=== PATIENT | male | born 1995 | race African-American/Black ===

== ENCOUNTER 2018-02-05 13:26 | Emergency (ER) | payer OTHER, SELFPAY ==
[2018-02-05 13:36] VITALS: BP 139/83; PULSE 80; RESP 14; TEMP 36.9; O2SAT 99; BMI 26.4
[2018-02-05] MEDS: ONDANSETRON 4 MG ODT PO (13:36)
--- NOTE | 2018-02-05 13:40 | ED.ABDPAIN ---
HPI - Abdominal Pain <EVERARDO Del Angel - Last Filed: 02/05/18 22:24> General Chief Complaint: Abdominal Pain Stated Complaint: VOMITING BLOOD Time Seen by Provider: 02/05/18 13:40 History of Present Illness HPI narrative: Healthy 22-year-old male here for complaint of having vomiting that started earlier this morning. She states that he had a couple episodes of vomiting the any had epigastric pain that started. Shortly after that he had a couple episodes of vomiting that had blood in the. Patient was not able to quantify the amount of blood and although he did say that there was a good amount of blood. He denies any prior episodes of this. He denies any history of having ulcers. No trauma to the abdomen. He denies any fevers or chills. Last bowel movement was day before yesterday was normal. He denies any urinary symptoms. No other concerns or complaints. MD complaint: abdominal pain Related Data Previous Rx's Medication Instructions Recorded esomeprazole magnesium 40 mg PO DAILY #30 cap 02/05/18 ondansetron [Zofran ODT] 4 mg PO Q6H PRN #10 tab 02/05/18 Allergies Allergy/AdvReac Type Severity Reaction Status Date / Time No Known Drug Allergies Allergy Verified 02/05/18 13:38 Review of Systems <EVERARDO Del Angel - Last Filed: 02/05/18 22:24> Constitutional Denies chills, Denies fever(s), Denies lethargy and Denies weakness Eyes Denies change in vision, Denies eye discharge, Denies irritation and Denies loss of vision ENT Ears, Nose, Mouth, and Throat: Denies change in voice, Denies neck pain and Denies sore throat Cardiovascular Denies chest pain, Denies irregular heart rhythm, Denies lightheadedness, Denies palpitations, Denies dyspnea, Denies dyspnea on exertion and Denies orthopnea Respiratory Denies cough, Denies dyspnea, Denies dyspnea on exertion and Denies wheezing Gastrointestinal Gastrointestinal: Reports abdominal pain, Reports nausea and Reports vomiting Genitourinary Denies hematuria, Denies flank pain, Denies urinary incontinence and Denies urinary urgency Musculoskeletal Denies neck pain Integumentary/Breasts Denies pruritus, Denies erythema, Denies rash and Denies wounds Neurologic Denies confusion, Denies loss of vision and Denies weakness Psychiatric Denies anxiety, Denies confusion, Denies depression, Denies homicidal ideation and Denies suicidal ideation Endocrine Denies palpitations Allergic/Immunologic Denies wheezing Exam <EVERARDO Del Angel - Last Filed: 02/05/18 22:24> Initial Vital Signs Initial Vital Signs: Vital Signs Temperature 98.4 F 02/05/18 13:36 Pulse Rate 80 02/05/18 13:36 Respiratory Rate 14 02/05/18 13:36 Blood Pressure 139/83 H 02/05/18 13:36 Pulse Oximetry 99 02/05/18 13:36 Const General: cooperative and well developed Nutritional Appearance: well nourished Orientation: alert, awake, oriented x3 and not confused HENMT Mouth: oral mucosae normal and moist mucous membranes Eyes Conjunctivae: conjunctivae normal Sclera: sclerae normal Pupils: PERRL EOM: EOM intact bilaterally Resp Effort & Inspection: normal respiratory effort, able to speak in complete sentences, no respiratory distress and no use of accessory muscles Auscultation: clear to auscultation bilaterally, no rales, no rhonchi and no wheezes Cardio Rate: regular rate Rhythm: regular rhythm Heart Sounds: no click, no gallops, no murmurs and no rubs Pulses: normal peripheral pulses GI Inspection: non-distended Palpation: soft, no hepatosplenomegaly, No guarding, No pulsatile mass and tender Auscultation: normal bowel sounds General: No CVA tenderness Skin General: no rashes or lesions noted, No jaundice and No petechiae <Hector Spangler DO - Last Filed: 02/08/18 14:01> Initial Vital Signs Initial Vital Signs: Vital Signs Temperature 98.4 F 02/05/18 13:36 Pulse Rate 80 02/05/18 13:36 Respiratory Rate 14 02/05/18 13:36 Blood Pressure 139/83 H 02/05/18 13:36 Pulse Oximetry 99 02/05/18 13:36 Course <EVERARDO Del Angel - Last Filed: 02/05/18 22:24> Orders Ordered: Discontinued Medications Sodium Chloride (Normal Saline 0.9%) 1,000 mls @ 1,000 mls/hr IV BOLUS ONE Stop: 02/05/18 15:16 Last Infusion: 02/05/18 15:36 Dose: 0 mls/hr Admin: 02/05/18 14:23 Dose: 1,000 mls/hr Ondansetron HCl (Zofran Odt) 4 mg PO NOW ONE Stop: 02/05/18 13:36 Last Admin: 02/05/18 13:36 Dose: 4 mg Ondansetron HCl (Zofran) 4 mg IV NOW ONE Stop: 02/05/18 14:18 Last Admin: 02/05/18 14:23 Dose: 4 mg Vital Signs - 8 hr 02/05/18 16:58 Pulse Rate 69 Respiratory Rate 14 Blood Pressure 133/77 H Pulse Oximetry 99 <Hector Spangler DO - Last Filed: 02/08/18 14:01> Orders Ordered: Discontinued Medications Sodium Chloride (Normal Saline 0.9%) 1,000 mls @ 1,000 mls/hr IV BOLUS ONE Stop: 02/05/18 15:16 Last Infusion: 02/05/18 15:36 Dose: 0 mls/hr Admin: 02/05/18 14:23 Dose: 1,000 mls/hr Ondansetron HCl (Zofran Odt) 4 mg PO NOW ONE Stop: 02/05/18 13:36 Last Admin: 02/05/18 13:36 Dose: 4 mg Ondansetron HCl (Zofran) 4 mg IV NOW ONE Stop: 02/05/18 14:18 Last Admin: 02/05/18 14:23 Dose: 4 mg Vital Signs - 8 hr 02/05/18 16:58 Pulse Rate 69 Respiratory Rate 14 Blood Pressure 133/77 H Pulse Oximetry 99 MDM - Abdominal Pain <EVERARDO Del Angel - Last Filed: 02/05/18 22:24> Lab Data Result diagrams: 02/05/18 14:16 02/05/18 14:16 Lab Results 02/05/18 02/05/18 02/05/18 Range/Units 14:16 14:16 14:16 WBC 8.1 (4.5-11.0) X10^3/uL RBC 4.63 (4.5-5.9) X10^6/uL Hgb 15.3 (13.5-17.5) g/dL Hct 44.3 (41-53) % MCV 95.5 (80-100) fL MCH 32.9 (26-34) PG MCHC 34.5 (30-36) % RDW 13.1 (11.6-14.8) % Plt Count 233 (150-400) X10^3/uL Neut % (Auto) 77.8 H (50-75) % Lymph % (Auto) 15.5 L (25-40) % [place] % (Auto) 5.6 (3-14) % Eos % (Auto) 0.5 L (2-4) % Baso % (Auto) 0.6 (0-2) % Neut # (Auto) 6300 H (3743-3194) /uL PT 11.6 (10.1-12.7) SECONDS INR 1.1 (0.9-1.3) Sodium 143 (137-145) mmol/L Potassium 4.0 (3.4-5.1) mmol/L Chloride 99 (98-107) mmol/L Carbon Dioxide 30 (22-32) mmol/L BUN 9 (9-20) mg/dL Creatinine 0.90 (0.66-1.25) mg/dL Estimated GFR > 60.0 (>60) mL/min BUN/Creatinine Ratio 10.0 (6-22) Glucose 93 (70-100) mg/dL Calcium 10.2 (8.4-10.2) mg/dL Total Bilirubin 0.8 (0.2-1.3) mg/dL AST 34 (17-59) IU/L ALT 22 (21-72) IU/L Alkaline Phosphatase 75 (38-126) U/L Total Protein 8.5 H (6.3-8.2) g/dL Albumin 5.0 (3.5-5.0) g/dL Globulin 3.5 (1.7-4.1) g/dL Albumin/Globulin Ratio 1.4 (1.0-2.8) Lipase 18 L (23-300) U/L Urine RBC (0-5/HPF) Urine WBC (0-5/HPF) Ur Squamous Epith Cells Amorphous Sediment Urine Bacteria (None) Urine Mucus (Negative) Ur Culture Indicated? Micro UA Comment 02/05/18 Range/Units Unknown WBC (4.5-11.0) X10^3/uL RBC (4.5-5.9) X10^6/uL Hgb (13.5-17.5) g/dL Hct (41-53) % MCV (80-100) fL MCH (26-34) PG MCHC (30-36) % RDW (11.6-14.8) % Plt Count (150-400) X10^3/uL Neut % (Auto) (50-75) % Lymph % (Auto) (25-40) % [place] % (Auto) (3-14) % Eos % (Auto) (2-4) % Baso % (Auto) (0-2) % Neut # (Auto) (7819-1186) /uL PT (10.1-12.7) SECONDS INR (0.9-1.3) Sodium (137-145) mmol/L Potassium (3.4-5.1) mmol/L Chloride (98-107) mmol/L Carbon Dioxide (22-32) mmol/L BUN (9-20) mg/dL Creatinine (0.66-1.25) mg/dL Estimated GFR (>60) mL/min BUN/Creatinine Ratio (6-22) Glucose (70-100) mg/dL Calcium (8.4-10.2) mg/dL Total Bilirubin (0.2-1.3) mg/dL AST (17-59) IU/L ALT (21-72) IU/L Alkaline Phosphatase (38-126) U/L Total Protein (6.3-8.2) g/dL Albumin (3.5-5.0) g/dL Globulin (1.7-4.1) g/dL Albumin/Globulin Ratio (1.0-2.8) Lipase (23-300) U/L Urine RBC None seen (0-5/HPF) Urine WBC 0-1/hpf (0-5/HPF) Ur Squamous Epith Cells 0-1 /hpf Amorphous Sediment 1+ Urine Bacteria None seen (None) Urine Mucus 2+ H (Negative) Ur Culture Indicated? Cult not indicated Micro UA Comment Not Reportable Imaging Data CT scan - abdomen: Radiologist's impression: XPROCEDURE: CT ABDOMEN PELVIS W CON INDICATIONS: Epigastric pain vomiting blood TECHNIQUE: After the administration of intravenous contrast, 5 mm thick sections acquired from the diaphragm to the symphysis. 5 mm coronal and sagittal reformats were acquired. For radiation dose reduction, the following was used: automated exposure control, adjustment of mA and/or kV according to patient size. COMPARISON: None. FINDINGS: Image quality: Excellent. ABDOMEN: Lung bases: Lung bases are clear. Heart size is normal. Solid organs: Liver is normal in size and enhancement. Gallbladder is clear. Biliary system is non dilated. Pancreas enhances normally. Spleen is normal in size and enhancement. No adrenal nodules. Kidneys demonstrate normal size and enhancement, without hydronephrosis. Peritoneum and bowel: Stomach and duodenum are unremarkable. Small bowel loops demonstrate normal wall thickness and caliber. Normal air-filled appendix. No free fluid or air. Nodes and vessels: No retroperitoneal or mesenteric adenopathy by size criteria. Aorta and inferior vena cava are normal in size. Miscellaneous: No ventral hernias. PELVIS: Genitourinary: Bladder wall thickness is normal. Miscellaneous: No inguinal hernias or adenopathy. Bones: No suspicious bony lesions. No vertebral body compression fractures. IMPRESSION: 1. No evidence of bowel obstruction or pneumoperitoneum. Normal appendix is visualized. 2. Stomach is partially collapsed. No unusual wall thickening or mass seen. Acute gastritis cannot be excluded by this exam. Endoscopy is suggested. Dictated by: Abdias Rhodes M.D. on 02/05/2018 at 14:52 Approved by: Abdias Rhodes M.D. on 02/05/2018 at 14:57 MDM Narrative Medical decision making narrative: CBC and Chem panel were obtained were unremarkable. PT and INR was obtained was also negative. Urinalysis was negative for urinary tract infection. CT of the abdomen was negative for any acute findings. However stomach was found to be partially collapsed and was unable to evaluate for gastritis with Radiology recommended follow up with endoscope. He is prescribed Zofran to help with nausea vomiting. He is also prescribed short course osomeprazole to cover for gastritis and possible ulceration. Follow up with primary care provider the next few days. Return emergency room for any worsening symptoms. <Hector Spangler, DO - Last Filed: 02/08/18 14:01> Lab Data Lab Results 02/05/18 02/05/18 02/05/18 Range/Units 14:16 14:16 14:16 WBC 8.1 (4.5-11.0) X10^3/uL RBC 4.63 (4.5-5.9) X10^6/uL Hgb 15.3 (13.5-17.5) g/dL Hct 44.3 (41-53) % MCV 95.5 (80-100) fL MCH 32.9 (26-34) PG MCHC 34.5 (30-36) % RDW 13.1 (11.6-14.8) % Plt Count 233 (150-400) X10^3/uL Neut % (Auto) 77.8 H (50-75) % Lymph % (Auto) 15.5 L (25-40) % [place] % (Auto) 5.6 (3-14) % Eos % (Auto) 0.5 L (2-4) % Baso % (Auto) 0.6 (0-2) % Neut # (Auto) 6300 H (1063-3019) /uL PT 11.6 (10.1-12.7) SECONDS INR 1.1 (0.9-1.3) Sodium 143 (137-145) mmol/L Potassium 4.0 (3.4-5.1) mmol/L Chloride 99 (98-107) mmol/L Carbon Dioxide 30 (22-32) mmol/L BUN 9 (9-20) mg/dL Creatinine 0.90 (0.66-1.25) mg/dL Estimated GFR > 60.0 (>60) mL/min BUN/Creatinine Ratio 10.0 (6-22) Glucose 93 (70-100) mg/dL Calcium 10.2 (8.4-10.2) mg/dL Total Bilirubin 0.8 (0.2-1.3) mg/dL AST 34 (17-59) IU/L ALT 22 (21-72) IU/L Alkaline Phosphatase 75 (38-126) U/L Total Protein 8.5 H (6.3-8.2) g/dL Albumin 5.0 (3.5-5.0) g/dL Globulin 3.5 (1.7-4.1) g/dL Albumin/Globulin Ratio 1.4 (1.0-2.8) Lipase 18 L (23-300) U/L Urine RBC (0-5/HPF) Urine WBC (0-5/HPF) Ur Squamous Epith Cells Amorphous Sediment Urine Bacteria (None) Urine Mucus (Negative) Ur Culture Indicated? Micro UA Comment 02/05/18 Range/Units Unknown WBC (4.5-11.0) X10^3/uL RBC (4.5-5.9) X10^6/uL Hgb (13.5-17.5) g/dL Hct (41-53) % MCV (80-100) fL MCH (26-34) PG MCHC (30-36) % RDW (11.6-14.8) % Plt Count (150-400) X10^3/uL Neut % (Auto) (50-75) % Lymph % (Auto) (25-40) % [place] % (Auto) (3-14) % Eos % (Auto) (2-4) % Baso % (Auto) (0-2) % Neut # (Auto) (2439-1687) /uL PT (10.1-12.7) SECONDS INR (0.9-1.3) Sodium (137-145) mmol/L Potassium (3.4-5.1) mmol/L Chloride (98-107) mmol/L Carbon Dioxide (22-32) mmol/L BUN (9-20) mg/dL Creatinine (0.66-1.25) mg/dL Estimated GFR (>60) mL/min BUN/Creatinine Ratio (6-22) Glucose (70-100) mg/dL Calcium (8.4-10.2) mg/dL Total Bilirubin (0.2-1.3) mg/dL AST (17-59) IU/L ALT (21-72) IU/L Alkaline Phosphatase (38-126) U/L Total Protein (6.3-8.2) g/dL Albumin (3.5-5.0) g/dL Globulin (1.7-4.1) g/dL Albumin/Globulin Ratio (1.0-2.8) Lipase (23-300) U/L Urine RBC None seen (0-5/HPF) Urine WBC 0-1/hpf (0-5/HPF) Ur Squamous Epith Cells 0-1 /hpf Amorphous Sediment 1+ Urine Bacteria None seen (None) Urine Mucus 2+ H (Negative) Ur Culture Indicated? Cult not indicated Micro UA Comment Not Reportable Discharge Plan Departure Patient Disposition: Home, Self-Care Clinical Impression: Vomiting blood Discharge Date/Time: 06/18/18 16:58 Interventions: ED Discharge Assessment Last Done: 02/05/18 16:58 Instructions: DI for Abdominal Pain-Adult Activity Restrictions/Additional Instructions: Laboratory results today were unremarkable. CT the abdomen was negative for any acute findings. Recommend following up with primary care provider in the next few days for re-evaluation and discussion of endoscopy to rule out gastro complications such as ulceration. You have been prescribed Zofran to help with the nausea use as directed. You also been prescribed esomeprazole to decrease amount as sitting your stomach and case there is a ulcer. For any worsening symptoms return to the emergency room. Prescriptions: New esomeprazole magnesium 40 mg capsule,delayed release(DR/EC) 40 mg PO DAILY Qty: 30 RF: 0 ondansetron [Zofran ODT] 4 mg tablet,disintegrating 4 mg PO Q6H PRN (Reason: nausea and vomiting) Qty: 10 RF: 0 Referrals: [facility] [Provider Group] <Hector Spangler DO - Last Filed: 02/08/18 14:01> Cosign ED Attending Cossathyaature Attestation: I was immediately available in the department for consultation. This documentation has been reviewed and I agree with assessment and plan. Supervised by Hector Spangler DO
[2018-02-05] MEDS: ONDANSETRON 4 MG/2 ML INJ IV (14:23)
[2018-02-05] MEDS: SODIUM CHLORIDE 0.9% 1,000 ML 1000 ML IV (14:23)
[2018-02-05 14:35] LABS: Add Manual Diff / Slide Review NO; Basophils Percent Auto 0.6 % (0-2); Eosinophils Percent Auto 0.5 % (2-4); Hematocrit 44.3 % (41-53); Hemoglobin 15.3 g/dL (13.5-17.5); Lymphocytes Percent Auto 15.5 % (25-40); Mean Corpuscular HGB Conc 34.5 % (30-36); Mean Corpuscular Hemoglobin 32.9 PG (26-34); Mean Corpuscular Volume 95.5 fL (80-100); Monocytes Percent Auto 5.6 % (3-14); Neutrophils Absolute Auto 6300 /uL (3000-5900); Neutrophils Percent Auto 77.8 % (50-75); Platelet Count 233 X10^3/uL (150-400); Red Blood Cell Count 4.63 X10^6/uL (4.5-5.9); Red Cell Distribution Width 13.1 % (11.6-14.8); White Blood Cell Count 8.1 X10^3/uL (4.5-11.0)
--- NOTE | 2018-02-05 14:38 | DI.CT.S_ITS ---
PROCEDURE: CT ABDOMEN PELVIS W CON INDICATIONS: Epigastric pain vomiting blood TECHNIQUE: After the administration of intravenous contrast, 5 mm thick sections acquired from the diaphragm to the symphysis. 5 mm coronal and sagittal reformats were acquired. For radiation dose reduction, the following was used: automated exposure control, adjustment of mA and/or kV according to patient size. COMPARISON: None. FINDINGS: Image quality: Excellent. ABDOMEN: Lung bases: Lung bases are clear. Heart size is normal. Solid organs: Liver is normal in size and enhancement. Gallbladder is clear. Biliary system is non dilated. Pancreas enhances normally. Spleen is normal in size and enhancement. No adrenal nodules. Kidneys demonstrate normal size and enhancement, without hydronephrosis. Peritoneum and bowel: Stomach and duodenum are unremarkable. Small bowel loops demonstrate normal wall thickness and caliber. Normal air-filled appendix. No free fluid or air. Nodes and vessels: No retroperitoneal or mesenteric adenopathy by size criteria. Aorta and inferior vena cava are normal in size. Miscellaneous: No ventral hernias. PELVIS: Genitourinary: Bladder wall thickness is normal. Miscellaneous: No inguinal hernias or adenopathy. Bones: No suspicious bony lesions. No vertebral body compression fractures. IMPRESSION: 1. No evidence of bowel obstruction or pneumoperitoneum. Normal appendix is visualized. 2. Stomach is partially collapsed. No unusual wall thickening or mass seen. Acute gastritis cannot be excluded by this exam. Endoscopy is suggested. Dictated by: Abdias Rhodes M.D. on 02/05/2018 at 14:52 Approved by: Abdias Rhodes M.D. on 02/05/2018 at 14:57
[2018-02-05 14:40] LABS: Alanine Aminotransferase 22 IU/L (21-72); Albumin Globulin Ratio 1.4 (1.0-2.8); Alkaline Phosphatase 75 U/L (38-126); Aspartate Aminotransferase 34 IU/L (17-59); Bilirubin Total 0.8 mg/dL (0.2-1.3); Blood Urea Nitrogen 9 mg/dL (9-20); Calcium 10.2 mg/dL (8.4-10.2); Carbon Dioxide 30 mmol/L (22-32); Chloride 99 mmol/L (98-107); Estimated Glomerular Filt Rate > 60.0 mL/min (>60); Globulin 3.5 g/dL (1.7-4.1); Glucose 93 mg/dL (70-100); HEMOLYSIS 52 (0-50); Lipase 18 U/L (23-300); Sodium 143 mmol/L (137-145); Total Protein 8.5 g/dL (6.3-8.2)
[2018-02-05 14:45] LABS: INR 1.1 (0.9-1.3); Prothrombin Time 11.6 SECONDS (10.1-12.7)
[2018-02-05 15:29] LABS: Bacteria Urine None Seen; RBC Urine None Seen (0-5/HPF)
[2018-02-05 15:37] LABS: Amorphous Sediment Urine 1+; Culture Indicated Urine Cult Not Indicated; Mucus Urine 2+ (Negative); Squamous Epithelial Cell Urine 0-1 /HPF; WBC Urine 0-1/HPF (0-5/HPF)
[2018-02-05 16:58] VITALS: BP 133/77; PULSE 69; RESP 14; O2SAT 99
== END 2018-02-05 16:58 | disposition home or self-care (01) ==
PROVIDERS: Emergency Provider Nurse Practitioner Family
DX: K92.0 Hematemesis (principal)
CPT/HCPCS: 36591; 74177; 80053; 81003; 81015; 83690; 85025; 85610; 96361; 96374; 99283; 99285; J2405; Q9967